=== PATIENT | female | born 2000 | race Caucasian/White ===

== ENCOUNTER 2021-03-09 19:29 | Emergency (ER) | payer OTHER ==
[~2021-03-09] VITALS: Ht 152.4 cm; Wt 65.8 kg
[2021-03-09 19:30] VITALS: BP 131/70
--- NOTE | 2021-03-09 22:25 | REPVR ---
PROCEDURE INFORMATION: Exam: US Duplex Right Lower Extremity Veins, Limited Exam date and time: 03/09/21 (9:31pm) Age: 20 years old Clinical indication: Right leg pain TECHNIQUE: Imaging protocol: Real-time Duplex ultrasound of the Right Lower Extremity with 2-D couch scale, color Doppler flow and spectral waveform analysis with image documentation. Limited exam was focused on the right lower extremity veins. COMPARISON: No relevant prior studies available FINDINGS: Right deep veins: Unremarkable. The common femoral, femoral, proximal profunda femoral and popliteal veins are patent without thrombus. Normal Doppler waveforms. Normal compressibility and/or augmentation response. Right superficial veins: Unremarkable. Saphenofemoral junction is patent without thrombus. Soft tissues: Unremarkable. IMPRESSION: No evidence of deep vein thrombosis (right leg). Electronically signed by: Mary Jo Monson On 03/09/2021 22:25:16 PM
== END 2021-03-09 22:48 | disposition home or self-care (01) ==
LOC: M ED 19:29
DX: M79.661 Pain in right lower leg (principal)

== ENCOUNTER 2021-06-08 10:45 | Inpatient (IN) | payer OTHER ==
[2021-06-08] VITALS (13 sets, daily range): BP systolic 115–147; BP diastolic 58–95
[~2021-06-08] VITALS: Ht 152.4 cm; Wt 77.7 kg
[2021-06-08] MEDS ORDERED: MULTTAB20 PO (11:01)
[2021-06-08] MEDS ORDERED: CARBOPROST TROMETHAMINE 250 MCG/ML AMP IM PRN (13:10)
[2021-06-08] MEDS ORDERED: TRANEXAMIC ACID INJection 1,000 MG in NS 100 ML IV PRN (13:10)
[2021-06-08] MEDS ORDERED: OXYTOCIN DRIP 30 UNITS in IV 1 EA IV PRN (13:10)
[2021-06-08] MEDS ORDERED: METHYLERGONOVINE MALEATE 0.2 MG/ML VIAL (J2210) IM PRN (13:10)
[2021-06-08] MEDS ORDERED: LIDOCAINE 1% MDV 20ML VIAL INFIL PRN (13:10)
--- NOTE | 2021-06-08 13:38 | HPEPDOC ---
Obstetrical History & Physical General Date of Admission Jun 08, 2021 at 12:46 History of Present Illness 20yo at 37w3d presents with complaint of LOF x1 week. Reports fluid is elsie ar, non-odorous and has been a constant, slow leak. Denies any bleeding or discharge. +GFM. Denies any contraction pain. Care Care: Good Care Dating Final EDC: Jun 26, 2021 Antepartum Course Diagnos(e)s Varicella nonimmune Past Medical History Past Obstetrical History : Past Obstetrical History: Primgravida Past Medical History Medical History none Surgical History: [place] teeth Family History Significant Family History: No pertinent family hx Social History Marital Status: Family situation: Spouse/partner home * Smoker: non-smoker Alcohol: Denies Drugs: denies Imunizations Tdap status: current (05/04/21) Allergies Coded Allergies: No Known Allergies (Unverified , 03/09/21) Medications Scheduled No122/Iron/Folic Acid ( Multi Tablet) 1 Each Tablet, 1 TAB PO DAILY Physical Examination Physical Examination GENERAL: Alert and oriented times three. BREAST: . ABDOMEN: Gravid and non-tender to touch. FETUS: Is vertex (VTX) by sterile vaginal examination (SVE), fetus is vertex (VTX) by Dhiraj. HEART RATE: Regular rate and rhythm. LUNGS: Clear to auscultation (CTA). EXTREMITIES: No edema. No clonus. Deep tendon reflexes (DTRs) + . Vital Signs/I&O Vital Signs Date Time Temp Pulse Resp B/P (MAP) Pulse Ox O2 Delivery O2 Flow Rate FiO2 06/08/21 12:24 84 137/72 (93) 06/08/21 10:58 97.5 16 Laboratory Data [facility] Laboratory Tests 2 06/08/21 12:55: Serology Scanned Report Hepatitis B Testing Pertinent Laboratoy Data Blood Type: O+ RBC Antibody Screen: Negative HIV: Negative Hepatitis B: Negative Rapid Plasma Reagin: Nonreactive Rubella: Immune Varicella: Nonreactive Chlamydia/Gonorrhea: Negative Group B Streptococcus: Negative Glucose Tolerance Test: 126 Anatomy Ultrasound Placenta Location: Anterior Normal Anatomy: Yes Placenta Previa: No Vaginal Examination Dilation: Fingertip (+pooling and nitrizine, neg ferning ) Effacement: 30% Station: -3 Cervical Consistency: Medium Cervical Position: Posterior Presentation: Cephalic presentation Assessment Heart Rate (FHR): 120 Variability: Increased Accelerations: Positive Decelerations: None Tocometer Contractions: Yes Frequency: regular (q2-4 min, not feeling ) Assessment/Plan Assessment 20yo at 37w3d by LMP c/w 11wk US with TOREY Jun, presents with suspected PROM. Clinically pt reports continuous, slow leaking x1 week. Exam positive for pooling an nitrizine. Questionable ferning on microscopic evaluation. TAUS with cephalic presentation and subjectively normal fluid. Although fluid level is currently normal, exam is suspicious for ROM, therefore will admit for IOL. Plan Admit and orient. Commercial Leasing Manager and consent. Diet: Regular Group B Streptococcus (GBS) negative. Labs and intravenous (IV) per unit protocol. Counseled on Pitocin and induction of labor (IOL). Anticipate normal spontaneous delivery (). C-S as appropriate. Labor and Delivery Counseling We will deliver your baby through the vagina with possible assistance of forceps or vacuum device if needed for maternal or indications. Forceps and vacuum are devices that can assist with vaginal delivery when normal pushing efforts cannot achieve delivery on their own or when delivery is needed in an emergency for baby's well-being. Medications may be required to induce or augment (help) your labor in order to achieve a vaginal delivery. An episiotomy may be required to help your baby to delivery vaginally. You may also require repair of any lacerations or tears of your vagina or vulva that are caused by delivery. In some cases, emergencies can occur that require an emergency section delivery so quickly that there may not be enough time to stop and complete consent forms for section. Understand that if this occurs, your provi ders will discuss the need for a section with you before they proceed with surgery. section is the delivery of your baby through an incision in your abdomen. In some situations, section may be safer to mom and baby than continuing labor and is only performed when clinically indicated. Risks of vaginal delivery include but are not limited to: Bleeding, infection, injury to the vagina, pelvic structures, injury to baby, damage to the uterus, reactions to anesthesia, uterine rupture, risk of hysterectomy for life threatening bleeding, or . Medications used to induce or augment labor may increase your risk for infection, uterine tachysystole, uterine rupture, heart rate abnormalities, need for emergency delivery or possible hysterectomy, and hemorrhage. Additional risks for use of forceps and vacuum include: increased risk of perineal and vaginal lacerations, risk of urinary or bowel incontinence, increased risk of injury to baby with bruising, scratches, hematomas on the head, or intracranial bleeding. LITZY PYLE M.D. Jun 08, 2021 13:38
[2021-06-08 14:29] LABS: HEMATOCRIT 38.3 % (36.0-47.0); MEAN CORPUSCULAR HEMOGLOBIN 30.7 pg (27.0-33.0); MEAN CORPUSCULAR HGB CONC 33.9 g/dl (32.0-36.5); MEAN CORPUSCULAR VOLUME 90.3 fl (80.0-96.0); PLATELET COUNT, AUTOMATED 149 10^3/uL (150-450); RED BLOOD COUNT 4.24 10^6/uL (4.00-5.40); WHITE BLOOD COUNT 14.4 10^3/uL (4.0-10.0)
[2021-06-08] MEDS ORDERED: miSOPROStol 25MCG 1/4 TABLET PO ONE (18:00)
[2021-06-08 19:23] LABS: ALT/SGPT 22 U/L (12-78); BILIRUBIN,TOTAL 0.4 MG/DL (0.2-1.0); CREATININE FOR GFR 0.52 MG/DL (0.55-1.30); GLOMERULAR FILTRATION RATE > 60.0 (>60); LDH LACTATE DEHYDROGENASE 170 U/L (84-246); URIC ACID 4.9 MG/DL (2.6-6.0)
[2021-06-08] MEDS ORDERED: miSOPROStol 25MCG 1/4 TABLET PO SCH (21:10)
[2021-06-08] MEDS ORDERED: OXYTOCIN DRIP 30 UNITS in IV 1 EA IV SCH (21:15)
[2021-06-08] MEDS: LR 1,000 ML IV SCH (23:26)
[2021-06-09] VITALS (54 sets, daily range): BP systolic 95–144; BP diastolic 54–87
[2021-06-09] MEDS ORDERED: FENTANYL 2MCG/ML ROPIVACAINE 0.2% IN 0.9% NACL 100ML IVBAG As Ordered ONE (00:50)
[2021-06-09] MEDS: LR 1,000 ML IV SCH ×4 (02:30→21:50)
[2021-06-09] MEDS: FENTANYL/ROPIVACAINE/NACL BAG 100 ML EPIDURAL SCH ×2 (02:36→11:02)
[2021-06-09] MEDS ORDERED: NALOXONE INJ 0.4MG/1ML VIAL (J2310 PER 1MG) IV PRN ×3 (03:05→16:33)
[2021-06-09] MEDS ORDERED: EPIDURAL COMMENT XX SCH (03:05)
[2021-06-09] MEDS ORDERED: ePHEDrine SULFATE 25 MG/5 ML(5MG/ML) SYRINGE IV PRN (03:05)
[2021-06-09] MEDS ORDERED: REFRIGERATOR IV KEYS XX PRN (03:05)
[2021-06-09] MEDS ORDERED: LACTATED RINGER'S 1000 ML IV PRN (03:05)
[2021-06-09] MEDS ORDERED: EPIDURAL/PCA KEYS XX PRN (03:05)
[2021-06-09] MEDS ORDERED: ONDANSETRON 4MG/2ML VIAL IV PRN ×3 (03:05→19:10)
[2021-06-09] MEDS ORDERED: diphenhydrAMINE 50MG/ML VIAL (J1200) IV PRN ×2 (03:05→16:33)
--- NOTE | 2021-06-09 03:51 | IPNPDOC ---
Obstetrical Progress Note Date of Service Jun 09, 2021 Subjective Pt sleeping with epidural. S/p 1 dose of cytotec, now 2/70/-3 per nurse check. Carolyn too frequently for second dose, started on pitocin. Now having more leaking of fluid. Objective Vital Signs Date Time Temp Pulse Resp B/P (MAP) Pulse Ox O2 Delivery O2 Flow Rate FiO2 06/09/21 01:44 98.2 96 20 132/73 (92) Assessment Heart Rate (FHR): 125 Variability: Moderate Accelerations: Positive Decelerations: Late (occasional) Heart Rate Tracing: Category II Tocometer Contractions: Yes Frequency: regular (q4hr) Sterile Vaginal Examination Dilation: 2cm Effacement (%): 70% Station: -2 (per nurse check) Assessment and Plan Anticipate: Vaginal Delivery Additional Comments Intermittent late decels responsive to position changes. Pt with epidural, s/p 1 dose cytotec and started on pitocin. Continue to monitor closely. Anticipate vaignal delivery LITZY PYLE M.D. Jun 09, 2021 03:51
--- NOTE | 2021-06-09 08:00 | IPNPDOC ---
Obstetrical Progress Note Date of Service Jun 09, 2021 Subjective To patient's room for assessment. Pt comfortable with epidural, no complaints this AM. Had larger gush of fluid around MN last night Objective Vital Signs Date Time Temp Pulse Resp B/P (MAP) Pulse Ox O2 Delivery O2 Flow Rate FiO2 06/09/21 06:43 98.4 87 18 116/64 (81) Assessment Heart Rate (FHR): 130 Variability: Moderate Accelerations: Positive Decelerations: Late (previously responding to position changes. occurring more frequently ) Heart Rate Tracing: Category II Tocometer Contractions: Yes (q 1-2 min) Sterile Vaginal Examination Dilation: 6 cm Effacement (%): 80% Station: 0 Cervical Consistency: Soft Cervical Position: Middle Postion/Presentation: Cephalic presentation Assessment and Plan Additional Comments Pt case frequently and having more late decelerations. Pitocin turned down from 4 to 2 to attempt to decrease contraction frequency to every 3 min. Pt responding to position changes, will continue to monitor closely. Discussed increased possibility of delivery via pending how FHT continues to look. Pt and family at bedside voiced understanding and questions answered. Will continue with IOL for now. LITZY PYLE M.D. Jun 09, 2021 08:00
[2021-06-09] MEDS ORDERED: OXYTOCIN INJ 10 UNITS/ML VIAL (J2590) IV ONE (08:40)
--- NOTE | 2021-06-09 11:57 | IPNPDOC ---
Text Note Date of Service The patient was seen on 06/09/21. NOTE Item Value Date Time White Blood Count 14.4 10^3/uL H 06/08/21 1418 Red Blood Count 4.24 10^6/uL 06/08/21 1418 Hemoglobin 13.0 g/dl 06/08/21 1418 Hematocrit 38.3 % 06/08/21 1418 Mean Corpuscular Volume 90.3 fl 06/08/21 1418 Mean Corpuscular Hemoglobin 30.7 pg 06/08/21 1418 Mean Corpuscular Hemoglobin Concent 33.9 g/dl 06/08/21 1418 Red Cell Distribution Width 13.2 % 06/08/21 1418 Platelet Count 149 10^3/uL L 06/08/21 1418 Item Value Date Time White Blood Count 14.4 10^3/uL H 06/08/21 1418 Red Blood Count 4.24 10^6/uL 06/08/21 1418 Hemoglobin 13.0 g/dl 06/08/21 1418 Hematocrit 38.3 % 06/08/21 1418 Mean Corpuscular Volume 90.3 fl 06/08/21 1418 Mean Corpuscular Hemoglobin 30.7 pg 06/08/21 1418 Mean Corpuscular Hemoglobin Concent 33.9 g/dl 06/08/21 1418 Red Cell Distribution Width 13.2 % 06/08/21 1418 Platelet Count 149 10^3/uL L 06/08/21 1418 06/09/2021 11.40 am review progress 20 yo AT 37.3 WEEKS HISTORY LOF X 1 WEEK CONFIRMED TODAY WITH NITRAZINE POSITIVE AND POOLING IN VAGINA. PATIENT ON PITOCIN AND HAD OVER NIGHT CATEGORY 3 STRIP SUBSEQUENTLY NOW CATEGORY 1 STRIP MODERATE VARIABILITY BASELINE NORMAL .ASSESSMENT SHOW NOTED VERTEX MOULDING VERTEX -3 MOULDING AT -1 STATION. PLAN SAFE TO PROCEED AND ALLOW TO LABOR DOWN VS,Fishbone, I+O VS, Fishbone, I+O Laboratory Tests 06/08/21 14:18 Vital Signs Date Time Temp Pulse Resp B/P (MAP) Pulse Ox O2 Delivery O2 Flow Rate FiO2 06/09/21 11:12 98.4 107 126/70 (88) 06/09/21 09:14 16 I&O- Last 24 Hours up to 6 AM 06/09/21 06:00 Intake Total 1098 ml Balance 1098 ml cSout Schofield MD Jun 09, 2021 11:56
--- NOTE | 2021-06-09 14:53 | IPNPDOC ---
Text Note Date of Service The patient was seen on 06/09/21. NOTE 06/09/21 assessment 1445 pm nurse request review of patient abdomen assessment category 1 strip fully dilated op shoulder on left side baby ssynclytism . swollen labia - 3 station, caput at -2 station . plan d/c Pitocin reposition and assessment 30 minutes . if no change option re primary cs VS,Fishbone, I+O VS, Fishbone, I+O Vital Signs Date Time Temp Pulse Resp B/P (MAP) Pulse Ox O2 Delivery O2 Flow Rate FiO2 06/09/21 12:12 104 125/75 (92) 06/09/21 11:12 98.4 06/09/21 09:14 16 I&O- Last 24 Hours up to 6 AM 06/09/21 05:59 Intake Total 1098 ml Balance 1098 ml Scout Schofield MD Jun 09, 2021 14:52
[2021-06-09] MEDS ORDERED: LACTATED RINGER'S 1000 ML IV ONE (16:00)
[2021-06-09] MEDS ORDERED: OXYTOCIN INJ 10 UNITS/ML VIAL (J2590) IV PRN (16:00)
[2021-06-09] MEDS ORDERED: BUPIVACAINE HCL 0.25% 10ML VIAL SC SCH (16:00)
[2021-06-09] MEDS ORDERED: ACETAMINOPHEN 650 MG SUPP PR SCH (16:00)
[2021-06-09] MEDS ORDERED: METHYLERGONOVINE MALEATE 0.2 MG/ML VIAL (J2210) IM PRN (16:00)
[2021-06-09] MEDS ORDERED: ceFAZolin SOD 2 GM in IV 1 EA IV ONE (16:00)
[2021-06-09] MEDS ORDERED: BICITRA 30ML SOLN UDC PO ONE (16:00)
[2021-06-09] MEDS ORDERED: AZITHROMYCIN INJ 500 MG, VIAL MATE ADAPTER 1 EACH in NS 250 ML IV ONE (16:00)
--- NOTE | 2021-06-09 16:05 | IPNPDOC ---
Text Note Date of Service The patient was seen on 06/09/21. NOTE 1600 hours no progress failure to descend category 1 strip reviewed risk of c/s include hemorrhage infection perforation reoperation risk of blood transfusion, hysterectomy for life threatening bleeding, . reviewed possibility of nicu admission . expressed understanding signed consent 20 minute discussion VS,Elsiee, I+O VS, Seanbone, I+O Vital Signs Date Time Temp Pulse Resp B/P (MAP) Pulse Ox O2 Delivery O2 Flow Rate FiO2 06/09/21 12:12 104 125/75 (92) 06/09/21 11:12 98.4 06/09/21 09:14 16 I&O- Last 24 Hours up to 6 AM 06/09/21 06:00 Intake Total 1098 ml Balance 1098 ml Scout Schofield MD Jun 09, 2021 16:05
[2021-06-09] MEDS ORDERED: ceFAZolin 2 GM/D5W 50 ML IV BAG (J0690 PER 500MG) As Ordered ONE (16:11)
[2021-06-09] MEDS ORDERED: BICITRA 30ML SOLN UDC As Ordered ONE (16:11)
[2021-06-09] MEDS ORDERED: AZITHROMYCIN INJ 500MG VIAL (J0456 PER 500MG) As Ordered ONE (16:12)
[2021-06-09] MEDS ORDERED: NALBUPHINE HCL 10 MG/ML AMP (J2300) IV PRN (16:33)
[2021-06-09] MEDS ORDERED: METOCLOPRAMIDE INJ 10MG/2ML VIAL (J2765 PER 1) IV PRN ×2 (16:33→19:10)
[2021-06-09] MEDS ORDERED: KETOROLAC 60MG 2ML VIAL As Ordered ONE (17:13)
[2021-06-09] MEDS ORDERED: METOCLOPRAMIDE INJ 10MG/2ML VIAL (J2765 PER 1) As Ordered ONE (17:13)
[2021-06-09] MEDS ORDERED: dexameTHASONE 4 MG/ML 1ML VIAL (J1100 PER 1MG) As Ordered ONE (17:13)
[2021-06-09] MEDS ORDERED: ONDANSETRON 4MG/2ML VIAL As Ordered ONE (17:13)
[2021-06-09] MEDS ORDERED: OXYTOCIN 30 UNITS IN 0.9% NaCl 500ML IV BAG (J2590) As Ordered ONE ×2 (17:13→17:43)
[2021-06-09] MEDS ORDERED: OXYTOCIN INJ 10 UNITS/ML VIAL (J2590) As Ordered ONE (17:13)
[2021-06-09] MEDS ORDERED: MORPHINE PRES-FREE INJ 10 MG/10 ML VIAL (J2274) As Ordered ONE (17:13)
[2021-06-09] MEDS ORDERED: PHENYLephrine 500MCG 5ML (100MCG/ML) SYRINGE As Ordered ONE (17:23)
[2021-06-09 17:24] LABS: CORD GAS ABE V -6.2; CORD GAS HCO3 V 20.7 MEQ/L; CORD GAS O2 SAT V 66.1 %; CORD GAS PCO2 V 45.9 mmHg; CORD GAS PH V 7.272 UNITS; CORD GAS PO2 V 28.4 mmHg; CORD GAS SBC V 18.7 MEQ/L; CORD GAS TCO2 V 22.1 MEQ/L
[2021-06-09 17:27] LABS: CORD GAS ABE A -7.1; CORD GAS HCO3 A 21.8 MEQ/L; CORD GAS O2 SAT A 24.4 %; CORD GAS PH A 7.193 UNITS; CORD GAS SBC A 17.2 MEQ/L; CORD GAS TCO2 A 23.6 MEQ/L
[2021-06-09] MEDS ORDERED: ACETAMINOPHEN 500 MG TAB PO PRN (17:50)
[2021-06-09] MEDS ORDERED: SIMETHICONE 80MG CHEW TAB PO PRN (17:50)
[2021-06-09] MEDS ORDERED: MOM 30ML SUSPENSION UDC PO PRN (17:50)
[2021-06-09] MEDS ORDERED: RHOGAM 300 MCG (1500 IU) INJ (J2790) IM SCH (17:50)
[2021-06-09] MEDS ORDERED: ANUSOL HC CREAM 30GM TOP PRN (17:50)
[2021-06-09] MEDS ORDERED: DOCUSATE SODIUM 100MG CAPSULE PO PRN (17:50)
[2021-06-09] MEDS ORDERED: ACETAMINOPHEN TAB 650MG DOSE (2X325MG) PO PRN (17:50)
[2021-06-09] MEDS ORDERED: MEASLES,MUMPS,RUBELLA VACCINE INJ (MMR-II) (90707) SC SCH (17:50)
[2021-06-09] MEDS ORDERED: LR 1,000 ML IV SCH ×2 (17:50→19:10)
[2021-06-09] MEDS ORDERED: METHYLERGONOVINE MALEATE 0.2 MG TAB PO PRN (17:50)
[2021-06-09] MEDS ORDERED: OXYTOCIN DRIP 30 UNITS in IV 1 EA IV ONE (18:15)
[2021-06-09] MEDS ORDERED: PERCOCET 5MG/325MG TAB PO PRN (19:10)
[2021-06-09] MEDS ORDERED: fentaNYL 100 MCG/2 ML INJECTION (J3010) IV PRN (19:10)
[2021-06-09] MEDS: KETOROLAC 30 MG/ML 1ML VIAL IV SCH (22:14)
[2021-06-10 02:00] VITALS: BP 109/58
[2021-06-10] MEDS: KETOROLAC 30 MG/ML 1ML VIAL IV SCH ×2 (05:14→11:02)
[2021-06-10 05:55] VITALS: BP 97/53
[2021-06-10 06:46] LABS: HEMATOCRIT 30.4 % (36.0-47.0); HEMOGLOBIN 10.2 g/dl (12.0-15.5); MEAN CORPUSCULAR HEMOGLOBIN 30.4 pg (27.0-33.0); MEAN CORPUSCULAR HGB CONC 33.6 g/dl (32.0-36.5); MEAN CORPUSCULAR VOLUME 90.5 fl (80.0-96.0); PLATELET COUNT, AUTOMATED 135 10^3/uL (150-450); RED BLOOD COUNT 3.36 10^6/uL (4.00-5.40); WHITE BLOOD COUNT 26.1 10^3/uL (4.0-10.0)
--- NOTE | 2021-06-10 08:01 | RO ---
OPERATIVE NOTE DATE OF OPERATION: 06/08/2021 PREOPERATIVE DIAGNOSIS: Failure to descend, asynclitic head, high spinal. POSTOPERATIVE DIAGNOSIS: Asynclitic head, POP, high spinal. OPERATION PROPOSED: Primary section. OPERATION PERFORMED: Primary section. SURGEON: Scout Schofield M.D. GROMMET WORKER: Khalif Asencio D.O. for retraction, extraction and visualization without which the procedure could not be completed. ANESTHESIA: Initially epidural, then spinal and local anesthetic. ESTIMATED BLOOD LOSS: 400 mL DESCRIPTION OF PROCEDURE: After adequate timeout, prepped and draped in the supine position. Rajput catheter in the bladder draining clear urine. Acetaminophen suppository 1300 mg per rectum, antibiotics appropriately in place and sequentials in place. A Pfannenstiel incision was made two fingerbreadths above the symphysis pubis, passing through abdominal layers, securing hemostasis, opening the peritoneal cavity. We noticed that the lower segment was quite bulging and thin. A low transverse incision draining clear liquor. We delivered a livebirth female weighing 6 lb, 11 oz, 3040 gm, Apgars of 7 and 8 at 1 and 5 minutes respectively. Arterial pH 7.19, base excess minus 7.1, venous pH 7.27, base excess minus 6.2. Dr. Villalpando in attendance because of the marked molding. Cord was around the neck x1. Placenta delivered manually thereafter, three vessels in the cord. Membranes and tissues intact. The uterus was swept out and cleaned. The lower segment was oversewn in the usual fashion in two layers, imbricating the second layer. Some spot cautery and some bleeding which was indiscriminate and then with instrument and pad count correct, reviewing the lower segment which was dry, the ovaries and tubes appeared to be normal. The Mobius which had previously been placed was removed and the abdomen was closed with running stitch for the fascia, interrupted for subcu, Dexon to the skin. Marcaine 0.25% 10 mL to the incisional site and a Medipore dressing was placed. The uterus was well contracted under Pitocin and the patient was taken to recovery in good condition.
[2021-06-10] MEDS: PRENATAL VITAMINS CHEWABLE TABLET PO SCH (09:31)
[2021-06-10 10:14] VITALS: BP 122/60
[2021-06-10 18:04] VITALS: BP 124/69
[2021-06-10] MEDS: IBUPROFEN 600MG TAB PO PRN (18:54)
[2021-06-10] MEDS: PERCOCET 5MG/325MG TAB PO PRN (21:15)
--- NOTE | 2021-06-10 23:02 | IPN ---
POSTOPERATIVE AND DAY #1 PROGRESS NOTE DATE: 06/10/2021 SUBJECTIVE: This lady is a 20-year-old 1, now para 1, who was admitted with contractions at 37 and 3 weeks of gestation, had a primary section for asynclitism and failure to descend, a live female infant 6 pounds 11 ounces (3040 grams), Apgars 7 and 8 in 1 and 5 minutes respectively. Arterial pH 7.19, base excess -7.1, venous pH 7.29, base excess -6.2. She did have a high spinal, which required bagging in the OR, however, she resolved that issue. On her first day, we discussed phlebitis, cystitis, mastitis, endometritis and cellulitis, diet, exercise, pain management, perineal, breast, and wound care. Presently the Rajput catheter is out. She has not voided yet, but it is not within the parameters of 3 hours. OBJECTIVE: Vital signs this morning: Blood pressure 97/53, respirations 16, pulse 98, temperature 97.8. She is asymptomatic with that blood pressure. The rest of the examination is unremarkable. Normocephalic, atraumatic. Neck full range of motion. Pupils equal and reactive to light. Distal pulses are symmetric. No evidence of DVT, PE or superficial phlebitis. Chest is clear bilaterally to the bases. No wheezes or rhonchi. No CVA tenderness. Abdomen is soft, four quadrant bowel sounds are noted. Incision is clean and dry. Uterus is two-below. Lochia is moderate. Bowel sounds are active. No rashes, lesions or pruritis. No arthralgia or myalgia. No complaint of joint pain. No complaint of cough, wheeze, shortness of breath or dyspnea on exertion. No nausea, vomiting, diarrhea or constipation. No urgency or frequency. LABORATORY DATA: Admitting hemoglobin 13.0, hematocrit 38.3, platelets 149,000. day #1, hemoglobin 10.2, hematocrit 30.4, platelets 135,000. IN SUMMARY: I have a term gestation delivered by primary section, a live female infant. Plans are to parts picker meds at [facility] for pain management. Patient will a 2-week incision check at [facility] and 6-week checkup at [facility], at which time control will be discussed. All questions were answered. 20 minute discussion.
[2021-06-11] MEDS: IBUPROFEN 600MG TAB PO PRN (01:49)
[2021-06-11 06:00] VITALS: BP 105/55
[2021-06-11] MEDS ORDERED: IBUP-1022 PO (06:38)
[2021-06-11] MEDS ORDERED: DOK1CAP7 PO (06:38)
[2021-06-11] MEDS ORDERED: PRENCHW PO (06:38)
[2021-06-11] MEDS ORDERED: PERCOCET PO (06:38)
[2021-06-11] MEDS: PRENATAL VITAMINS CHEWABLE TABLET PO SCH (08:24)
[2021-06-11] MEDS: PERCOCET 5MG/325MG TAB PO PRN (08:27)
--- NOTE | 2021-06-11 09:25 | DSES ---
DISCHARGE SUMMARY DATE OF ADMISSION: 06/08/2021 DATE OF DISCHARGE: 06/11/2021 BRIEF HISTORY: This lady is a 20-year-old 1 now para 1 who was admitted at 37 and 3 weeks of gestation with contractions and loss of fluid. She had a primary section for asynclitism, failure to descend. She had a very high spinal, required resuscitation, she also had an epidural and local anesthetic. She delivered a female infant, 6 pounds, 11 ounces, 3040 grams, Apgars of 7 and 8 at 1 and 5 minutes respectively, a considerable amount of molding on the head, cord x1. Arterial pH 7.19, base excess -7.1, venous pH 7.27, base excess -6.2. On her second day we discussed phlebitis, cystitis, mastitis, endometritis, cellulitis, diet, exercise, pain management, perineal, breast and wound care. Her discharge blood pressure was 105/55, respirations are 16, pulse is 76, temperature is 97.7. Her admitting hemoglobin was 13.0, and hematocrit 38.3, platelets were 149,000. Discharge hemoglobin 10.2, hematocrit 30.4 and platelets were 135,000. PHYSICAL EXAMINATION: The rest of examination was unremarkable. Normocephalic, atraumatic. Neck with full range of motion. Pupils equal and reactive to light. Distal pulses are symmetric. No evidence of DVT, PE or superficial phlebitis. Chest is clear bilaterally to bases. No wheezes or rhonchi. No CVA tenderness. Abdomen is soft, four quadrant bowel sounds are noted. Uterus is 2 below, lochia is moderate, the incision is clean and dry. No rashes, lesions or pruritus, no arthralgias or myalgias. No complaint of joint pain. No complaint of cough, wheeze, shortness of breath or dyspnea on exertion. No nausea, vomiting, diarrhea or constipation. No urgency or frequency. IMPRESSION: In summary, we have a term gestation, delivered a livebirth female infant by section. PLAN: supervisor packing room meds at [facility], two week incision check at [facility], six week check. All questions were answered, 25 minute discussion. Patient was discharged improved. cc: [facility]
== END 2021-06-11 11:15 | disposition home or self-care (01) | DRG 773 ==
LOC: M LDO 10:45 → M LDI 12:46 → M NNB 06-09 17:37 → M LDI 06-09 17:39 → M OBS 06-09 19:48
PROVIDERS: ADMIT Obstetrics & Gynecology; ATTEND Obstetrics & Gynecology
PROC: 10D00Z1 Extraction of Products of Conception, Low, Open Approach (ICD-10-PCS; principal; 2021-06-08)
PROC: 3E0DXGC Introduction of Other Therapeutic Substance into Mouth and Pharynx, External Approach (ICD-10-PCS; 2021-06-08)
PROC: 3E033VJ Introduction of Other Hormone into Peripheral Vein, Percutaneous Approach (ICD-10-PCS; 2021-06-08)
DX: O32.4XX0 Maternal care for high head at term, not applicable or unspecified (principal); Z37.0 Single live birth; Z3A.37 37 weeks gestation of pregnancy; O69.81X0 Labor and delivery complicated by cord around neck, without compression, not applicable or unspecified

== ENCOUNTER → 2022-12-16 | Outpatient (REF) ==
[~2022-12-16] MED LIST: CARA1TAB6 PO; DOK1CAP4 PO; IBUP-1022 PO; MULTTAB20 PO; PANT40TA29 PO; PERCOCET PO; PRENCHW PO
== END ==
LOC: M EMP 10:42
PROVIDERS: ATTEND Family Medicine
DX: Z20.822 Contact with and (suspected) exposure to COVID-19 (principal)

== ENCOUNTER → 2022-12-23 | Outpatient (REF) | LOC: M EMP 08:57 | PROVIDERS: ATTEND Family Medicine | DX: Z11.52 Encounter for screening for COVID-19 (principal) ==

== ENCOUNTER → 2022-12-26 | Outpatient (REF) | payer OTHER | LOC: M LAB REF 16:22 | PROVIDERS: ATTEND Student in an Organized Health Care Education/Training Program | DX: R30.0 Dysuria (principal) ==

== ENCOUNTER → 2022-12-31 | Outpatient (REF) | LOC: M EMP 08:55 | PROVIDERS: ATTEND Family Medicine | DX: Z11.52 Encounter for screening for COVID-19 (principal) ==

== ENCOUNTER → 2023-01-06 | Outpatient (REF) | LOC: M EMP 10:41 | PROVIDERS: ATTEND Family Medicine | DX: Z11.52 Encounter for screening for COVID-19 (principal) ==